=== PATIENT | female | born 2000 ===

== ENCOUNTER 2021-10-09 18:57 | Emergency (ER) | payer OTHER ==
[~2021-10-09] VITALS: Ht 160 cm; Wt 54.5 kg
[2021-10-09] MEDS ORDERED: ACETAMINOPHEN 500 MG TABLET PO ONE (19:45)
[2021-10-09] MEDS ORDERED: ONDANSETRON HCL 4 MG TABLET PO ONE (19:45)
[2021-10-09 19:51] LABS: COVID AG,FIA SOURCE NASOPHARYNGEAL
[2021-10-09 20:21] LABS: BASOPHILS % (AUTO) 0.3 % (0.0-2.0); EOSINOPHILS % (AUTO) 0.3 % (1.0-6.0); HEMATOCRIT 34.1 % (36-46); HEMOGLOBIN 11.3 g/dL (12.0-16.0); LYMPHOCYTES # (AUTO) 0.5 K/uL (1.0-4.8); LYMPHOCYTES % (AUTO) 9.6 % (22.0-44.0); MEAN CORPUSCULAR HEMOGLOBIN 27.9 pg (26.0-34.0); MEAN CORPUSCULAR HGB CONC 33.2 G/dL (31.0-37.0); MEAN CORPUSCULAR VOLUME 84 fL (80-100); MONOCYTES # (AUTO) 0.3 K/uL (0.1-1.0); MONOCYTES % (AUTO) 5.7 % (2.0-9.0); NEUTROPHILS # (AUTO) 4.2 K/uL (1.8-7.7); NEUTROPHILS % (AUTO) 84.1 % (40.0-70.0); PLATELET COUNT (AUTO) 361 K/uL (150-450); RED BLOOD CELL COUNT(AUTO) 4.06 MIL/uL (4.00-5.20)
[2021-10-09 20:31] LABS: ANION GAP 12 mmol/L (8-16); CALCIUM, TOTAL 9.4 mg/dL (8.8-10.5); CARBON DIOXIDE 23 mmol/L (22-29); CHLORIDE 105 mmol/L (98-107); CREATININE 0.99 mg/dL (0.60-1.30); GLOMERULAR FILTR. RATE CALC > 60 mL/min (>60); GLUCOSE,RANDOM 88 mg/dL (70-110); POTASSIUM 3.2 mmol/L (3.5-5.1); SODIUM SERUM 140 mmol/L (136-145); UREA NITROGEN, BLOOD 6 mg/dL (7-18)
[2021-10-09 20:36] LABS: ALANINE AMINOTRANSFERASE 14 U/L (12-78); ALBUMIN 4.3 g/dL (3.4-5.0); ALKALINE PHOSPHATASE 66 U/L (46-116); ASPARTATE AMINOTRANSFERASE 9 U/L (15-37); BILIRUBIN,TOTAL 1.1 mg/dL (0.1-1.0); LIPASE 109 U/L (73-393); TOTAL PROTEIN, SERUM 7.5 g/dL (6.4-8.2)
[2021-10-09] MEDS ORDERED: ACET-66 PO (21:07)
[2021-10-09] MEDS ORDERED: ONDA-104 PO (21:07)
[2021-10-09 21:30] VITALS: BP 117/66
== END 2021-10-09 21:46 | disposition home or self-care (01) ==
LOC: EMS 18:57
DX: F10.10 Alcohol abuse, uncomplicated (principal); F12.90 Cannabis use, unspecified, uncomplicated; Z20.822 Contact with and (suspected) exposure to COVID-19
CPT/HCPCS: 99283; 87426; 80053; 83690; 84703; 85025; 36415; Q0162